=== PATIENT | female | born 1985 | race American Indian/Alaskan Native ===

== ENCOUNTER 2018-12-01 11:35 | Emergency (ER) | payer SELFPAY ==
[2018-12-01 12:15] VITALS: BP 142/91
--- NOTE | 2018-12-01 12:15 | Event Note ---
ED Screening Note Date of service: 12/01/18 Time: 12:11 ED Screening Note: 33 y/o female comes in for multiple complaint of sore throat, vaginal irritation. No fevers. Did not follow up with her PCP. This initial assessment/diagnostic orders/clinical plan/treatment(s) is/are subject to change based on patients health status, clinical progression and re- assessment by fellow clinical providers in the ED. Further treatment and workup at subsequent clinical providers discretion. Patient/guardian urged not to elope from the ED as their condition may be serious if not clinically assessed and managed. Initial orders include:
[2018-12-01 13:22] LABS: Bilirubin,Urine NEG (Negative); Blood,Urine LG (Negative); Color,Urine Yellow (Yellow); Mucus,Urine FEW /HPF; Urobilinogen,Urine < 2.0 mg/dL (<2.0)
--- NOTE | 2018-12-01 14:05 | Emergency Department Report ---
ED General Adult HPI - General Chief complaint: Sore Throat Stated complaint: SORE THROAT/NAUSEA/DIZZINESS/BLEEDING WHILE URINAT Time Seen by Provider: 12/01/18 12:10 Source: patient Mode of arrival: Ambulatory Limitations: No Limitations - History of Present Illness Initial comments: Mrs. Kumar is a very pleasant 31-year-old female with history of hidradenitis suppurativa who is otherwise healthy. She presents with sinus headache and symptoms of UTI. She was treated at outside urgent care center. Treated with Macrobid and nitrofurantoin. However symptoms still exists. She has nasal congestion and facial fullness. She has concern for sinus infection. Sinus symptoms present for several days. UTI symptoms present over a week. -: Gradual, week(s) (1) Location: head Quality: aching Consistency: constant Improves with: none - Related Data Previous Rx's Medication Instructions Recorded Last Taken Type Loratadine 10 mg PO DAILY 10 Days #10 tablet 12/01/18 Unknown Rx Sulfamethoxazole/Trimethoprim 1 each PO BID 10 Days #20 tablet 12/01/18 Unknown Rx [Bactrim DS TAB] Allergies Allergy/AdvReac Type Severity Reaction Status Date / Time Penicillins Allergy Swelling Verified 12/01/18 11:37 ED Review of Systems ROS: Stated complaint: SORE THROAT/NAUSEA/DIZZINESS/BLEEDING WHILE URINAT Other details as noted in HPI Comment: All other systems reviewed and negative Constitutional: malaise. denies: fever Gastrointestinal: denies: abdominal pain Genitourinary: dysuria Neurological: headache ED Past Medical Hx - Past Medical History Previous Medical History?: No Hx Arthritis: No Hx Asthma: No - Surgical History Past Surgical History?: No - Social History Smoking Status: Current Every Day Smoker Substance Use Type: Alcohol - Medications Home Medications: Home Medications Medication Instructions Recorded Confirmed Last Taken Type Loratadine 10 mg PO DAILY 10 Days #10 tablet 12/01/18 Unknown Rx Sulfamethoxazole/Trimethoprim 1 each PO BID 10 Days #20 tablet 12/01/18 Unknown Rx [Bactrim DS TAB] ED Physical Exam - General Limitations: No Limitations General appearance: alert, in no apparent distress - Head Head exam: Present: atraumatic, normocephalic - Eye Eye exam: Present: normal appearance. Absent: scleral icterus, conjunctival injection - ENT ENT exam: Present: mucous membranes moist - Neck Neck exam: Present: normal inspection, full ROM - Respiratory Respiratory exam: Present: normal lung sounds bilaterally. Absent: respiratory distress - Neurological Exam Neurological exam: Present: alert, oriented X3 - Psychiatric Psychiatric exam: Present: normal affect, normal mood - Skin Skin exam: Present: warm, dry, intact, normal color ED Course Vital Signs 12/01/18 12:07 Temperature 98.5 F Pulse Rate 90 Respiratory 90 H Rate Blood Pressure 142/91 O2 Sat by Pulse 96 Oximetry ED Medical Decision Making - Medical Decision Making Sinus headache UTI, rx: bactrim, loratadine Critical care attestation.: If time is entered above; I have spent that time in minutes in the direct care of this critically ill patient, excluding procedure time. ED Disposition Clinical Impression: UTI (urinary tract infection), Sinus headache Disposition: TO HOME OR SELFCARE Is pt being admited?: No Does the pt Need Aspirin: No Condition: Stable Instructions: Urinary Tract Infection in Women (ED), Allergic Rhinitis (ED) Prescriptions: Sulfamethoxazole/Trimethoprim [Bactrim DS TAB] 1 each PO BID 10 Days #20 tablet Loratadine 10 mg PO DAILY 10 Days #10 tablet Referrals: DIANNA GARRISON MD [Primary Care Provider] - 3-5 Days Forms: Work/School Release Form(ED)
== END 2018-12-01 14:29 | disposition home or self-care (01) ==
LOC: ED 11:35
DX: N39.0 Urinary tract infection, site not specified (principal); L98.8 Other specified disorders of the skin and subcutaneous tissue; F17.200 Nicotine dependence, unspecified, uncomplicated; Z88.0 Allergy status to penicillin
CPT/HCPCS: 81001; 87086